=== PATIENT | male | born 1980 | race Caucasian/White ===

== ENCOUNTER 2017-03-09 12:08 | Inpatient (IN) | payer SELFPAY ==
[~2017-03-09] VITALS: Ht 182.9 cm; Wt 84.2 kg
[~2017-03-09 12:08] MED LIST: HYDR2TAB13 PO; LEVE250T28 PO; WARF7.5T PO
[2017-03-09] MEDS ORDERED: SODIUM CHLORIDE FLUSH 10ML SYR IVF ONE (13:30)
[2017-03-09] MEDS ORDERED: MORPHINE SULFATE 4 MG/ML, 1ML ONE ×2 (13:55→15:42)
[2017-03-09 14:19] LABS: ASPARTATE AMINO TRANSFERASE 12 U/L (15-37); BLOOD UREA NITROGEN 9 mg/dL (7-18)
[2017-03-09 14:26] LABS: IS PT STATUS REG ER OR PRE ER? YES
[2017-03-09] MEDS: MORPHINE SULFATE 4 MG/ML, 1ML IVPush PRN ×4 (14:31→23:32)
[2017-03-09] MEDS ORDERED: WARF5TAB7 PO (15:52)
[2017-03-09] MEDS ORDERED: PRENATAL PO (15:52)
[2017-03-09] MEDS ORDERED: ONDANSETRON 2MG/ML, 2ML IVP PRN (16:30)
[2017-03-09] MEDS ORDERED: LABETALOL 5MG/ML, 20ML IV PRN (16:30)
[2017-03-09] MEDS ORDERED: ONDANSETRON ODT 4 MG PO PRN (16:30)
[2017-03-09] MEDS ORDERED: VANCOMYCIN PMX 1GM/200ML 200 ML IV ONE (16:30)
[2017-03-09] MEDS ORDERED: CEFTRIAXONE PMX 1GM/50ML 50 ML IV ONE (16:30)
[2017-03-09] MEDS ORDERED: POLYETHYLENE GLYCOL 17 GM PACKET PO PRN (16:30)
[2017-03-09] MEDS ORDERED: HEPARIN 25,000 UNITS/500ML PMX 500 ML IV PRN ×2 (16:30→23:45)
[2017-03-09] MEDS ORDERED: HYDROcodone/APAP 5/325 TABLET PO PRN (16:30)
[2017-03-09] MEDS ORDERED: CEFTRIAXONE PMX 1GM/50ML 50 ML ONE (16:36)
[2017-03-09] MEDS: SODIUM CHLORIDE 0.9% 1,000 ML IV SCH (16:42)
[2017-03-09] MEDS ORDERED: DIPHENHYDRAMINE 50 MG/ML, 1ML ONE (16:50)
[2017-03-09] MEDS ORDERED: DIPHENHYDRAMINE 50 MG/ML, 1ML IVPush ONE (17:00)
[2017-03-09] MEDS ORDERED: LORazepam 2 MG/ML, 1ML ONE (17:15)
[2017-03-09] MEDS ORDERED: LORazepam 2 MG/ML, 1ML IVPush ONE (17:30)
[2017-03-09 17:38] LABS: TOTAL IRON BINDING CAPACITY 392 mcg/dL (250-450)
[2017-03-09 17:39] LABS: IS PT STATUS REG ER OR PRE ER? YES
[2017-03-09 20:00] VITALS: BP 109/71
[2017-03-09 23:11] LABS: IS PT STATUS REG ER OR PRE ER? NO
[2017-03-09] MEDS ORDERED: HEPARIN 5,000 UNITS/ML, 1ML IV PRN (23:45)
[2017-03-10 03:00] VITALS: BP 118/66
[2017-03-10] MEDS: MORPHINE SULFATE 4 MG/ML, 1ML IVPush PRN ×5 (03:48→21:33)
[2017-03-10 06:26] LABS: ASPARTATE AMINO TRANSFERASE 13 U/L (15-37); BLOOD UREA NITROGEN 6 mg/dL (7-18)
[2017-03-10 07:31] VITALS: BP 122/71
[2017-03-10] MEDS: SENNA/DOCUSATE TABLET PO SCH (09:00)
[2017-03-10] MEDS: SODIUM CHLORIDE 0.9% 1,000 ML IV SCH ×2 (09:06→19:45)
[2017-03-10] MEDS ORDERED: FLUMAZENIL 0.1 MG/1 ML, 5ML ONE (13:09)
[2017-03-10] MEDS ORDERED: MIDAZOLAM 1 MG/ML, 5ML ONE (13:09)
[2017-03-10] MEDS ORDERED: NALOXONE 1 MG/ML, 2ML ONE (13:09)
[2017-03-10] MEDS ORDERED: FENTANYL PF 100 MCG/2ML ONE (13:09)
[2017-03-10] MEDS ORDERED: GADOBUTROL 7.5 MMOL/7.5 ML PFS ONE (14:14)
[2017-03-10 15:30] VITALS: BP 111/67
[2017-03-10] MEDS ORDERED: VANCOMYCIN PER PHARMACY MC PRN (16:30)
[2017-03-10] MEDS: ENOXAPARIN 80 MG/0.8 ML SQ SCH (16:51)
[2017-03-10] MEDS ORDERED: PHARMACOKINETIC MONITORING MC PRN (17:00)
[2017-03-10] MEDS ORDERED: PHARMACOKINETIC CONSULTATION MC ONE (17:00)
[2017-03-10] MEDS ORDERED: WARFARIN 7.5 MG TABLET PO-COUM ONE (18:00)
[2017-03-10] MEDS: CEFTRIAXONE PMX 1GM/50ML 50 ML IV SCH (18:43)
[2017-03-10 19:27] VITALS: BP 121/68
[2017-03-10] MEDS: VANCOMYCIN 1,600 MG in SODIUM CHLORIDE 0.9% 250 ML IV SCH (19:44)
[2017-03-11] MEDS: MORPHINE SULFATE 4 MG/ML, 1ML IVPush PRN ×8 (00:29→22:36)
[2017-03-11 02:07] VITALS: BP 113/70
[2017-03-11] MEDS: SODIUM CHLORIDE 0.9% 1,000 ML IV SCH ×3 (03:28→21:20)
[2017-03-11 06:41] VITALS: BP 112/68
[2017-03-11] MEDS: ENOXAPARIN 80 MG/0.8 ML SQ SCH ×2 (08:04→19:36)
[2017-03-11] MEDS: SENNA/DOCUSATE TABLET PO SCH (08:04)
[2017-03-11] MEDS: VANCOMYCIN 1,600 MG in SODIUM CHLORIDE 0.9% 250 ML IV SCH ×2 (08:04→21:00)
[2017-03-11 08:32] LABS: BLOOD UREA NITROGEN 7 mg/dL (7-18)
[2017-03-11 12:05] VITALS: BP 115/68
[2017-03-11] MEDS ORDERED: WARFARIN 7.5 MG TABLET PO-COUM ONE (18:00)
[2017-03-11] MEDS: CEFTRIAXONE PMX 1GM/50ML 50 ML IV SCH ×2 (18:11→19:37)
[2017-03-11] MEDS ORDERED: VANCOMYCIN PER PHARMACY MC PRN (19:00)
[2017-03-11 19:20] VITALS: BP 116/79
[2017-03-11] MEDS: LEVETIRACETAM 500 MG TABLET PO SCH (21:22)
[2017-03-11] MEDS: TRAZODONE 100MG TABLET PO PRN (22:36)
[2017-03-12 05:32] VITALS: BP 110/76
[2017-03-12] MEDS: SODIUM CHLORIDE 0.9% 1,000 ML IV SCH ×3 (06:11→19:52)
[2017-03-12] MEDS: MORPHINE SULFATE 4 MG/ML, 1ML IVPush PRN ×6 (06:15→22:37)
[2017-03-12 06:28] LABS: ASPARTATE AMINO TRANSFERASE 13 U/L (15-37); BLOOD UREA NITROGEN 10 mg/dL (7-18)
[2017-03-12 06:50] VITALS: BP 102/61
[2017-03-12] MEDS: LEVETIRACETAM 500 MG TABLET PO SCH ×2 (08:42→19:52)
[2017-03-12] MEDS: ENOXAPARIN 80 MG/0.8 ML SQ SCH ×2 (08:43→19:51)
[2017-03-12] MEDS: VANCOMYCIN 1,600 MG in SODIUM CHLORIDE 0.9% 250 ML IV SCH ×2 (08:45→21:51)
[2017-03-12] MEDS: SENNA/DOCUSATE TABLET PO SCH (08:45)
[2017-03-12 13:38] VITALS: BP 102/60
[2017-03-12] MEDS ORDERED: WARFARIN 7.5 MG TABLET PO-COUM ONE (18:00)
[2017-03-12 19:01] VITALS: BP 108/70
[2017-03-12] MEDS: CEFTRIAXONE PMX 1GM/50ML 50 ML IV SCH (19:52)
[2017-03-12] MEDS: TRAZODONE 100MG TABLET PO PRN (22:37)
[2017-03-13 01:02] VITALS: BP 111/76
[2017-03-13] MEDS: MORPHINE SULFATE 4 MG/ML, 1ML IVPush PRN ×2 (01:45→05:48)
[2017-03-13 06:18] LABS: ASPARTATE AMINO TRANSFERASE 19 U/L (15-37); BLOOD UREA NITROGEN 14 mg/dL (7-18)
[2017-03-13] MEDS ORDERED: DOXYCYCLINE 100MG TABLET PO SCH (09:00)
[2017-03-13] MEDS ORDERED: AMOXICILLIN/CLAV 875-125MG TABLET PO SCH (09:00)
[2017-03-13] MEDS ORDERED: WARFARIN 10 MG TABLET PO-COUM ONE (18:00)
== END 2017-03-13 08:32 | disposition left against medical advice (07) | DRG 872 ==
LOC: ED 12:18 → EDIP 16:02 → 4WST 19:37 → 3NE 03-10 18:00
PROVIDERS: ADMIT Hospitalist; ATTEND Hospitalist
DX: A41.9 Sepsis, unspecified organism (principal); D68.59 Other primary thrombophilia; L03.116 Cellulitis of left lower limb; D68.2 Hereditary deficiency of other clotting factors; Z91.19 Patient's noncompliance with other medical treatment and regimen; G40.909 Epilepsy, unspecified, not intractable, without status epilepticus; D50.9 Iron deficiency anemia, unspecified; J40 Bronchitis, not specified as acute or chronic; Z66 Do not resuscitate; Z59.0 Homelessness; F64.9 Gender identity disorder, unspecified; Z88.8 Allergy status to other drugs, medicaments and biological substances; Z91.048 Other nonmedicinal substance allergy status; Z79.899 Other long term (current) drug therapy; Z86.73 Personal history of transient ischemic attack (TIA), and cerebral infarction without residual deficits; I25.2 Old myocardial infarction; Z72.0 Tobacco use
CPT/HCPCS: 36415; 71010; 80048; 80053; 80061; 80202; 81003; 82040; 82550; 82728; 83540; 83550; 83605; 83690; 83735; 83880; 84145; 84439; 84443; 84484; 85025; 85520; 85610; 85651; 86140; 87040; 87070; 87077; 87186; 87205; 93005; 96365; 96366; 96368; 96375; 99156; A9585; J0696; J1644; J1650; J2250; J3010; J3370; J1200; J2310; J7030; J7050

== ENCOUNTER 2018-12-08 17:43 | Observation (INO) | payer MEDICAID ==
[~2018-12-08] VITALS: Ht 182.9 cm; Wt 76.2 kg
[~2018-12-08 17:43] MED LIST changes: -HYDR2TAB13 PO; +HYDR2TAB29 PO; +PRENATAL PO; +WARF-36 PO
--- NOTE | 2018-12-08 18:07 | NUR ---
PT BIB [facility]. PT WAS SITTING IN WHEELCHAIR, COULD NOT GO TO THE [facility] AND IS WET AND HYPOTHERMIC. REPORTS CP, AND HAD 2 SEIZURES TODAY. 12 LEAD NS. BP 124/80. PT IS ALERT, ORIENTED, WITH NAD. PT IS ALERT, ORIENTED, WITH NAD. PT IS CONNECTED TO THE MONITOR. CALL LIGHT WITHIN REACH.
--- NOTE | 2018-12-08 18:37 | NUR ---
XRay at bedside.
--- NOTE | 2018-12-08 18:49 | NUR ---
Report given to Theron TRACY.
[2018-12-08] MEDS ORDERED: OXYcodone IR 5MG TABLET PO ONE (19:00)
--- NOTE | 2018-12-08 19:04 | NUR ---
PT REFUSING LAB DRAW STATING THAT WE CAN ONLY GET BLOOD FROM HIS PORT. POWER PORT ACCESSED. PORT FLUSHES WELL BUT DOES NOT DRAW BACK BLOOD. PT DEMANDING TO RAPID FLUSH HIS PORT BECAUSE "I KNOW BEST". PT WAS EXPLAINED HE IS HERE FOR PE RULEOUT AND DUE TO HIS CLOTTING DISORDER DISLODGING A CLOT THAT MAY BE PREVENTING THE BLOOD FROM DRAWING IS DANGEROUS AND WE WILL NOT DO. LAB AT [facility] WITNESSED THIS CONVERSATION. PT DEMANDING TO SPEAK WITH CHARGE NURSE AND MD. PT DEMANDING THAT ONLY AN MD PUT IN A CENTRAL LINE OR ULTRASOUND LINE. PT EXPRESSING FRUSTRATION AT THIS RNS DENIAL OF RAPID INFUSING HIS PORT. CHARGE INFORMED. AWAITING MD AT THIS TIME.
--- NOTE | 2018-12-08 19:12 | NUR ---
SPOKE WITH WHOM AGREES WE WILL NOT BE RAPID FLUSHING THE PTS PORT THIS IS DANGEROUS. STATES PT CAN AGREE TO LAB DRAW OR AMA. THIS RN AND LAB AT BEDSIDE TO SPEAK TO PT. PT ANGRILLY TELLS TAVERN OPERATOR "WELL YOU BETTER BRING 10 NEEDLES BECAUSE THATS HOW MANY STICKS ITS GOING TO TAKE". PT AGREED TO LAB DRAW. LAB DRAW COMPLETED ON FIRST ATTEMPT.
--- NOTE | 2018-12-08 19:20 | NUR ---
PT TO VQ SCAN AT THIS TIME
[2018-12-08 19:27] LABS: BASOPHILS # (AUTO) 0.06 x10^3/uL (0-0.1); BASOPHILS % (AUTO) 1 % (0-1); EOSINOPHILS # (AUTO) 0.16 x10^3/uL (0-0.4); EOSINOPHILS % (AUTO) 3 % (1-7); LYMPHOCYTES # (AUTO) 1.49 x10^3/uL (1-3.4); LYMPHOCYTES % (AUTO) 27 % (22-44); MD NO; MEAN CORPUSCULAR HEMOGLOBIN 25.1 pg (27.0-34.8); MEAN CORPUSCULAR VOLUME 75.9 fL (80-100); MEAN PLATELET VOLUME 9.4 fL (7.4-10.4); MONOCYTES # (AUTO) 0.47 x10^3/uL (0.2-0.8); MONOCYTES % (AUTO) 9 % (2-9); NEUTROPHILS # (AUTO) 3.24 x10^3/uL (1.8-6.8); NEUTROPHILS % (AUTO) 60 % (42-75); PLATELET COUNT 182 x10^3/uL (130-400); RED CELL DISTRIBUTION WIDTH 21.6 % (9.6-15.2)
[2018-12-08 19:34] LABS: INTERNATIONAL NORMALIZED RATIO 1.13 (0.93-1.1); PROTHROMBIN TIME 11.9 Seconds (9.6-11.5)
[2018-12-08 19:37] LABS: ALBUMIN 3.8 g/dL (3.4-5.0); ANION GAP 8 mmol/L (5-15); CALCIUM 8.4 mg/dL (8.5-10.1); CHLORIDE 108 mmol/L (98-107)
[2018-12-08 19:40] LABS: TROPONIN I < 0.015 ng/mL (0.000-0.045)
--- NOTE | 2018-12-08 20:28 | NUR ---
PT HAS RETURNED FROM VQ SCAN. PT WAS UNABLE TO COMPLETE THE BREATHING PORTION OF THE AXAM DUE TO NON COMPLIANCE. POC DISCUSSED. LAB WORK DISCUSSED. PT STATES HE HAS BEEN OFF OF HIS WARFARIN X3 DAYS. PT THEN STATES THE ER DOCTOR IS NOT A REAL DOCTOR. POC DISCUSSED. PT TONYA FURTHER NEEDS AT THIS TIME.
[2018-12-08] MEDS ORDERED: WARFARIN HIGH DOSE PROTOCOL XX PRN (21:30)
[2018-12-08] MEDS ORDERED: LEVETIRACETAM 100 MG/ML ORAL SOL PO SCH (21:30)
[2018-12-08] MEDS ORDERED: POLYETHYLENE GLYCOL 17 GM PACKET PO PRN (21:30)
[2018-12-08] MEDS ORDERED: ONDANSETRON ODT 4 MG PO PRN (21:30)
[2018-12-08] MEDS ORDERED: WARFARIN 10 MG TABLET PO-COUM ONE ×2 (21:30→23:30)
[2018-12-08] MEDS ORDERED: TRAZODONE 50MG TABLET PO PRN (21:30)
[2018-12-08] MEDS ORDERED: hydrALAzine 20 MG/ML, 1ML IVPush PRN (21:30)
[2018-12-08] MEDS ORDERED: ONDANSETRON 2MG/ML, 2ML IVPush PRN (21:30)
--- NOTE | 2018-12-08 22:19 | NUR ---
LATE ENTRY: PT ADAMENTLY REFUSED ALL PERIPHERAL IV STARTS BY THIS RN
[2018-12-08 22:36] VITALS: BP 108/66
[2018-12-08] MEDS ORDERED: FINA5TAB4 PO (23:05)
[2018-12-08] MEDS ORDERED: HEPARIN 5,000 UNITS/ML, 1ML IV PRN (23:30)
[2018-12-08] MEDS ORDERED: ESTRADIOL 0.1 MG/24 HR PATCH TD SCH ×2 (23:30→23:35)
[2018-12-08] MEDS ORDERED: HEPARIN 25,000 UNITS/500ML PMX 500 ML IV PRN (23:30)
[2018-12-08] MEDS ORDERED: FINASTERIDE 5 MG TABLET PO SCH (23:30)
[2018-12-08] MEDS ORDERED: OXYcodone IR 5MG TABLET PO PRN (23:30)
[2018-12-08] MEDS ORDERED: HEPARIN 5,000 UNITS/ML, 1ML IV ONE (23:30)
[2018-12-08] MEDS ORDERED: ESTR1PAT25 TD (23:34)
[2018-12-08 23:53] VITALS: BP 119/69
[2018-12-09] MEDS: KEPPRA 750 MG HOMEMEDPO SCH ×2 (00:23→10:25)
[2018-12-09 04:49] VITALS: BP 109/71
[2018-12-09 07:39] VITALS: BP 116/64
== END 2018-12-09 12:26 | disposition left against medical advice (07) ==
LOC: ED 18:31 → SUATTDRO 20:54 → EDIP 21:16 → 5SO 22:45
PROVIDERS: ADMIT Hospitalist; ATTEND Hospitalist
DX: R07.89 Other chest pain (principal); D68.51 Activated protein C resistance; D68.59 Other primary thrombophilia; G40.909 Epilepsy, unspecified, not intractable, without status epilepticus; I25.2 Old myocardial infarction; Z59.0 Homelessness; Z79.01 Long term (current) use of anticoagulants; Z79.890 Hormone replacement therapy; Z86.718 Personal history of other venous thrombosis and embolism; Z86.73 Personal history of transient ischemic attack (TIA), and cerebral infarction without residual deficits; Z87.891 Personal history of nicotine dependence; Z88.9 Allergy status to unspecified drugs, medicaments and biological substances; Z91.14 Patient's other noncompliance with medication regimen; Z91.041 Radiographic dye allergy status; Z99.3 Dependence on wheelchair
CPT/HCPCS: 36415; 71045; 78582; 80048; 82040; 84484; 85025; 85610; 85730; 93005; 99284; A9540; A9558; G0378

== ENCOUNTER 2020-11-19 20:37 | Emergency (ER) | payer SELFPAY ==
[~2020-11-19] VITALS: Ht 182.9 cm; Wt 75.0 kg
[~2020-11-19 20:37] MED LIST changes: +ESTR1PAT25 TD; +FINA5TAB4 PO
[2020-11-19 20:40] VITALS: BP 140/78
--- NOTE | 2020-11-19 20:56 | NUR ---
ER PROVIDER AT BEDSIDE FOR EVALUATION.
--- NOTE | 2020-11-19 21:00 | NUR ---
PATIENT WHEELED BACK FROM TRIAGE WITH CHIEF C/O CHEST PAIN. PATIENT STATES SHE HAS BEEN HAVING WEAKNESS, AND FEELING LETHARGIC, UNABLE TO STAND UP 2-3 DAYS. PATIENT STATES "I THINK I MAY HAVE HAD A TIA IN MY SLEEP." PATIENT ACCOMPANIED BY SIGNIFICANT OTHER. JIAN BESS, CALL LIGHT WITHIN REACH.
[2020-11-19] MEDS ORDERED: ONDANSETRON ODT 4 MG PO ONE (21:30)
[2020-11-19] MEDS ORDERED: OXYcodone 5 MG/5 ML ORAL.SOL UDC PO PRN (21:30)
--- NOTE | 2020-11-19 22:14 | NUR ---
THIS RN WALKING BY PATIENT ROOM WHEN ELECTRICAL INTEGRATOR CAME OUT AND SAID PATIENT REFUSED TO HAVE LABS DRAWN PERIPHERALLY, PATIENT REQUESTING RN TO ACCESS PORT TO DRAW LABS. 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 EXPLAINED TO PATIENT THAT PORT CANNOT BE ACCESSED FOR BLOOD ONLY PER DR. ESCOTO, AND BLOOD WILL NEED TO BE DRAWN PERIPHERALLY. 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 PT VERBALIZED UNDERSTANDING OF NOT HAVING LABS DRAWN FOR HIS CHEST PAIN, UP TO AND INCLUDING . PATIENT THEN REQUESTED TO SPEAK WITH MACHINE OPERATOR HAY STACKER. THIS RN SPOKE WITH MACHINE OPERATOR HAY STACKER RN ABOUT SITUATION AND MACHINE OPERATOR HAY STACKER RN CALLED ONCOLOGY ABOUT ACCESSING PORT FOR BLOOD DRAWS. WHILE WAITING FOR RETURN CALL FROM ONCOLOGY DRY CLEANING ATTENDANT, PATIENT CAME OUT OF ROOM FULLY DRESSED WITH FRIEND AND STATED "IT'S GOING TO TAKE TOO LONG I'M JUST GOING TO LEAVE AND IF IT GETS WORSE I'LL GO TO [facility] WHERE THEY HAVE EPIC." MACHINE OPERATOR HAY STACKER SPOKE WITH PATIENT, AND EXPLAINED THAT SHE IS WAITING TO HEAR BACK FROM ONCOLOGY MACHINE OPERATOR HAY STACKER ABOUT ACCESSING PORT. PATIENT UPSET, UNABLE TO REASON WITH PATIENT AND HAVE HIM STAY. PATIENT AGAIN VERBALIZED UNDERSTANDING OF RISKS STATING "DON'T TALK TO ME ABOUT IT, I'M A [employer]IL[employer] PL[employer]. I KNOW HOW THINGS WORK." DESPITE ATTEMPTS TO RE-DIRECT AND ENCOURAGE PATIENT TO STAY FOR A WORK UP, PT WHEELED AWAY FROM MACHINE OPERATOR HAY STACKER WHILE SHE WAS TALKING REFUSING TO STAY.
== END 2020-11-19 22:49 | disposition left against medical advice (07) ==
LOC: ED 21:35
DX: R07.89 Other chest pain (principal); G40.909 Epilepsy, unspecified, not intractable, without status epilepticus; I25.2 Old myocardial infarction; F17.210 Nicotine dependence, cigarettes, uncomplicated; Z86.73 Personal history of transient ischemic attack (TIA), and cerebral infarction without residual deficits
CPT/HCPCS: 93005; 99283